=== PATIENT | male | born 1965 | race Caucasian/White ===

== ENCOUNTER 2020-11-18 10:04 | Emergency (ER) | payer OTHER ==
[~2020-11-18] VITALS: Ht 177.8 cm; Wt 81.6 kg
[2020-11-18] MEDS ORDERED: IBUPROFEN 600 MG TABLET ONE (10:21)
[2020-11-18] MEDS: IBUPROFEN 600 MG TABLET PO ONE (10:24)
--- NOTE | 2020-11-18 10:24 | NUR ---
[facility] From Home "was repairing on the roof - coming down ladder twisted Right ankle and fell". Rates pain 12/26. Denies numbness/swelling in the extremity. Will continue to monitor the patient.
[2020-11-18] MEDS ORDERED: IBUP-1955 PO (10:41)
[2020-11-18 11:46] VITALS: BP 135/66
--- NOTE | 2020-11-18 11:46 | NUR ---
Patient discharged to home in stable condition. Written and verbal after care instructions given. Patient verbalizes understanding of instruction.
== END 2020-11-18 11:45 | disposition home or self-care (01) ==
LOC: ER 10:07
DX: S93.491A Sprain of other ligament of right ankle, initial encounter (principal); Z98.890 Other specified postprocedural states; Z88.2 Allergy status to sulfonamides; X50.1XXA Overexertion from prolonged static or awkward postures, initial encounter; Y93.89 Activity, other specified; Y92.89 Other specified places as the place of occurrence of the external cause; Y99.8 Other external cause status
CPT/HCPCS: 73610-TC